=== PATIENT | female | born 1990 | race Caucasian/White ===

== ENCOUNTER 2016-08-09 08:30 | Inpatient (IN) | payer MEDICAID ==
[2016-08-12] MEDS ORDERED: cefOXitin 2 GM Vial ONE (07:03)
[2016-08-12] MEDS: Scopolamine 1.5 MG Transdermal Patch TRDERM PRN (11:09)
[2016-08-12] MEDS ORDERED: Celecoxib 200 MG Cap PO ONE (11:30)
[2016-08-12] MEDS ORDERED: Dextrose 5%-Lactated Ringers 1,000 ML IV SCH (11:30)
[2016-08-12] MEDS ORDERED: Gabapentin 300 MG Cap PO ONE (11:30)
[2016-08-12] MEDS ORDERED: Acetaminophen 500 MG Tab PO ONE (11:30)
[2016-08-12] MEDS ORDERED: Albuterol/Ipratropium 3.0-0.5 MG/3 ML Neb Soln NEB ONE (12:00)
[2016-08-12] MEDS ORDERED: fentaNYL 250 MCG/5 ML SDV ONE (12:21)
[2016-08-12] MEDS ORDERED: Ondansetron 4 MG/2 ML SDV ONE (12:21)
[2016-08-12] MEDS ORDERED: Neostigmine Methylsulfate 1 MG/ML 5 ML Syringe ONE (12:21)
[2016-08-12] MEDS ORDERED: Succinylcholine/Normal Saline 200 MG/10 ML Syringe ONE (12:21)
[2016-08-12] MEDS ORDERED: Dexamethasone 4 MG/ML SDV ONE (12:21)
[2016-08-12] MEDS ORDERED: Lactated Ringers 1,000 ML ONE (12:21)
[2016-08-12] MEDS ORDERED: Propofol 200 MG/20 ML SDV ONE (12:21)
[2016-08-12] MEDS ORDERED: Midazolam 1 MG/ML 2 ML SDV ONE (12:21)
[2016-08-12] MEDS ORDERED: Rocuronium 50 MG/5 ML Vial ONE ×2 (12:21→13:36)
[2016-08-12] MEDS ORDERED: cefOXitin 2 GM in Sodium Chloride 0.9% 50 ML IV ONE (12:30)
[2016-08-12] MEDS ORDERED: Ketamine 500 MG/5 ML MDV IV SCH (13:00)
[2016-08-12] MEDS ORDERED: Ropivacaine 60 ML, Dexamethasone 8 MG, EPINEPHrine 0.4 MG, Sodium Chloride 0.9% 17.6 ML NERVRT SCH ×4 (13:00)
[2016-08-12] MEDS ORDERED: Lidocaine 2% 100 MG/5 ML Syringe IVPUSH ONE (13:00)
[2016-08-12] MEDS ORDERED: HYDROmorphone 1 MG/ML Syringe IVPUSH ONE (15:30)
[2016-08-12] MEDS ORDERED: Labetalol 20 MG/4 ML Syringe IVPUSH PRN (16:26)
[2016-08-12] MEDS ORDERED: Albuterol/Ipratropium 3.0-0.5 MG/3 ML Neb Soln INH PRN (16:26)
[2016-08-12] MEDS ORDERED: SCOPOLAMINE PATCH ASK TOP SCH (16:26)
[2016-08-12] MEDS ORDERED: diphenhydrAMINE 50 MG/ML SDV IVPUSH PRN (16:26)
[2016-08-12] MEDS: Lidocaine 0.4%/D5W 2 GM/500 ML BAG IV SCH (16:35)
[2016-08-12] MEDS: hydrOXYzine HCl 50 MG/ML SDV IM PRN (16:43)
[2016-08-12] MEDS: Ondansetron 4 MG/2 ML SDV IVPUSH PRN (16:50)
[2016-08-12] MEDS ORDERED: MVI, Adult with Vitamin K 10 ML, Thiamine 200 MG, Chromium/Copper/Mang/Selen/Zn 1 ML in... IV SCH ×4 (17:00)
[2016-08-12] MEDS: Pantoprazole 40 MG Vial IVPUSH SCH (17:23)
[2016-08-12] MEDS: Heparin Sodium 5,000 Units/ML Vial SUBCUT SCH (17:31)
[2016-08-12] MEDS ORDERED: Acetaminophen Soln 650 MG/20.3 ML UD Cup ONE (17:40)
[2016-08-12] MEDS: Acetaminophen 325 MG Tab PO SCH ×2 (17:43→22:02)
[2016-08-12] MEDS: cefOXitin 2 GM in Sodium Chloride 0.9% 50 ML IV SCH (17:46)
[2016-08-12] MEDS: HYDROmorphone 1 MG/ML Syringe IVPUSH PRN (19:36)
[2016-08-12] MEDS: Gabapentin 300 MG Cap PO SCH (20:39)
[2016-08-12] MEDS: Albuterol/Ipratropium 3.0-0.5 MG/3 ML Neb Soln INH SCH (20:39)
[2016-08-13] MEDS: cefOXitin 2 GM in Sodium Chloride 0.9% 50 ML IV SCH ×2 (00:03→05:00)
[2016-08-13] MEDS: Dextrose 5%-Lactated Ringers 1,000 ML IV SCH ×2 (00:07→07:26)
[2016-08-13] MEDS ORDERED: Iohexol 647 MG/ML 50 ML SDV IVPUSH PRN (02:21)
[2016-08-13] MEDS: Ondansetron 4 MG/2 ML SDV IVPUSH PRN ×2 (03:09→22:01)
[2016-08-13] MEDS: HYDROmorphone 1 MG/ML Syringe IVPUSH PRN ×2 (03:09→22:02)
[2016-08-13] MEDS: Heparin Sodium 5,000 Units/ML Vial SUBCUT SCH ×3 (03:48→17:07)
[2016-08-13] MEDS: Lidocaine 0.4%/D5W 2 GM/500 ML BAG IV SCH (04:59)
[2016-08-13] MEDS: Acetaminophen 325 MG Tab PO SCH (05:00)
[2016-08-13] MEDS: Albuterol/Ipratropium 3.0-0.5 MG/3 ML Neb Soln INH SCH ×4 (07:10→22:05)
[2016-08-13] MEDS ORDERED: LORazepam 1 MG Tab PO PRN (07:55)
[2016-08-13] MEDS: Celecoxib 200 MG Cap PO SCH (08:00)
[2016-08-13] MEDS: Gabapentin 300 MG Cap PO SCH ×3 (08:00→22:03)
[2016-08-13] MEDS: SCOPOLAMINE PATCH CHECK TOP SCH (08:01)
[2016-08-13] MEDS ORDERED: Non-Formulary Medication 1 Each (Levothyroxine Sodium [Synthroid] 125 MCG) PO SCH (09:00)
[2016-08-13] MEDS ORDERED: Non-Formulary Medication 1 Each (Sertraline [Zoloft] 100 MG) PO SCH (09:00)
--- NOTE | 2016-08-13 09:03 | CR ---
UGI wo KUB HISTORY: evaluate post rny FINDINGS: Limited upper GI series was obtained without fluoroscopy. Water-soluble contrast was admin istered orally. Immediate along with 15 minute delayed images were obtained. Small gastric pouch is demonstrated. Contrast passes readily through the gastrojejunostomy into loops of jejunum. The Sarath limb is dilated which could represent partial obstruction of the distal anastomosis. Postoperative i leus could also be considered. There is no contrast extravasation. Surgical drain is noted left uppe r quadrant. Lung bases are clear. IMPRESSION: Rule out is mildly dilated suggesting possible obstruction of the distal anastomosis bernie jc postoperative ileus. No other postoperative complication is identified status post Sarath-en-Y gas tric bypass.
[2016-08-13] MEDS: Levothyroxine 100 MCG, Levothyroxine 25 MCG PO SCH ×2 (09:06)
[2016-08-13] MEDS: Topiramate 100 MG Tab PO SCH ×2 (09:07→22:03)
[2016-08-13] MEDS: Sertraline 50 MG Tab PO SCH (09:07)
[2016-08-13] MEDS: Acetaminophen Soln 650 MG/20.3 ML UD Cup PO SCH ×3 (11:14→22:04)
[2016-08-13] MEDS ORDERED: Dextrose 5%-Lactated Ringers 1,000 ML IV SCH (12:00)
--- NOTE | 2016-08-13 13:13 | OR ---
DATE OF PROCEDURE: 08/12/2016 PREOPERATIVE DIAGNOSIS: Morbid obesity. POSTOPERATIVE DIAGNOSES: 1. Morbid obesity. 2. Marked hepatomegaly. 3. Paraesophageal diaphragmatic hernia. OPERATIVE PROCEDURE: 1. Laparoscopic Suni-en-Y gastric bypass with long limb gastroenterostomy (43053). 2. Vincent-Cut needle liver biopsy (37172). 3. Repair of paraesophageal diaphragmatic hernia (35291). ANESTHESIA: General. CLERICAL ASSIGNER: Consuelo Mckinney PA-C, and REINALDO Snider student. INDICATIONS FOR PROCEDURE: This is a 25-year-old female presenting with longstanding morbid obesity and increasingly significant comorbidities. After preoperative evaluation and discussion, she wished to proceed with a gastric bypass procedure. Potential risks including bleeding, infection, leaks from various GI tract closures, problems with bowel obstruction over time as well as possibility of cardiopulmonary, septic, or hemorrhagic complications leading to were discussed, and the patient wishes to proceed. DETAILS OF PROCEDURE: The patient was taken to the operating room and after general endotracheal anesthesia was induced, she was placed in a lithotomy position. Bilateral transverse abdominis plane block was then placed in the subcostal location under continuous ultrasound guidance. The abdomen was then prepped and draped. At 15 cm inferior and 5 cm left of xiphoid process, a transverse incision was made and the peritoneal cavity entered under direct vision with an Optiview trocar, inflated to 15 mmHg pressure with CO2. The laparoscope was reinserted. No underlying trocar insertion site injuries were seen. Following this, 5 additional trocars were placed across the upper and mid abdomen and general exploration was undertaken. The patient was noted to have marked hepatomegaly with liver volume being roughly 3 times normal and the liver grossly fatty infiltrated. Vincent-Cut needle biopsies were obtained from the left lobe of the liver. Minimal bleeding from the biopsy sites was controlled with electrocautery. The omentum was then divided in the midline up to the level of the transverse colon. This allowed identification of the small bowel to the ligament of Treitz. Small bowel was traced out 200 cm distal to that point, it was divided transversely with a PHYLLIS stapler. Small bowel was then traced out additional 200 cm where the rocl-xe-jubw enteroenterostomy was accomplished with internal firing of the Endo-PHYLLIS 60 mm stapler, common opening was then closed transversely with the same stapler and the angles anastomosed, and mesenteric defect approximated with some 0 Ethibond stitch along with fibrin sealant, divided end of the Suni limb was then from the mesentery for a few centimeters, which has allowed suni limb to be brought up to the area of the esophagogastric junction with minimal tension. The liver was then retracted anteriorly. The patient was noted to have moderate-sized paraesophageal diaphragmatic hernia. Photo documentation was obtained. This was reduced and the peritoneum over the anterior aspect of the hernia was divided and reflected downward. An anterior repair of the diaphragmatic hernia was then accomplished with some 0 Ethibond sutures, reinforced with PTFE pledgets. The gastrointestinal balloon catheter was then inflated to 15 mL and pulled up snugly against the EG junction. Gastric wall over the apex balloon was then marked with electrocautery, balloon catheter deflated and pulled up from the esophagus. The lesser omental tissue adjacent to gastric cardia was incised and the pouch was initiated with a transverse firing of the PHYLLIS stapler at the level of the cauterized zoe. The pouch was then completed with 2 additional firings of PHYLLIS stapler up to and through the angle of His. The anvil of a 21 mm EEA stapler was then attached to Forrest sump type tube. The latter was brought down through the mouth and taken out through a small opening in the gastric pouch, thus allowing the anvil likewise to be pulled down to within the gastric pouch. The Suni limb was then opened and the main body of the EEA stapler passed several centimeters into the Suni limb of the small bowel, brought up the anvil, united with thus creating the gastrojejunostomy. Upon removal of the stapler, double donuts of mucosa were noted within. The small bowel was closed off with a vascular staple line. Gastrojejunostomy was reinforced with some 3-0 Vicryl seromuscular stitch along with fibrin sealant. A leak test was accomplished with injection of 120 mL of air in the gastric pouch while submerged with a cefoxitin-containing saline solution, no leaks were identified. One Al-Juan drain was then placed adjacent to gastrojejunostomy, taken out through the left subcostal trocar site, and with no further problems noted, trocars were removed, peritoneal cavity was deflated. Incisions were closed with some 4-0 Vicryl skin stitch and drain fixed with 4-0 Vicryl stitch as well. The patient was taken to the recovery room in satisfactory condition. Physician psychologist research assistant, Consuelo Mckinney, played an essential role in assisting in this case, helping to position the patient, retract structures as needed, as well as suturing and cutting sutures as indicated. Her presence improved the patient's safety and decreased operative time. Reyes Munson MD /[id number]
[2016-08-13] MEDS ORDERED: MVI, Adult with Vitamin K 10 ML, Thiamine 200 MG, Chromium/Copper/Mang/Selen/Zn 1 ML in... IV SCH ×4 (16:00)
[2016-08-13] MEDS: Pantoprazole 40 MG Vial IVPUSH SCH (17:07)
--- NOTE | 2016-08-13 21:07 | PN ---
DATE OF SERVICE: 08/13/2016 SUBJECTIVE: Regina is postop day 1. She has been up ambulating. States her pain is controlled. Tolerating a step one diet well. Her upper GI this morning was normal. Regina is on the energy protocol. She did receive Dilaudid IV twice last night. REVIEW OF SYSTEMS: Remainder of review of systems negative for any pertinent positives and negatives. OBJECTIVE: GENERAL: Regina Garcia is a 25-year-old female. She is alert and orientated. VITAL SIGNS: TPR 98.7, 66, 18. Blood pressure 151/81. HEENT: Negative. NECK: Supple. HEART: Regular rate and rhythm. LUNGS: Clear. ABDOMEN: Dressings dry and intact. OSMAN drain is draining a light pink serosanguineous drainage 40 mL in the past 24 hours. EXTREMITIES: SCDs are on and there is no peripheral edema. ASSESSMENT: Laparoscopic Sarath-en-Y gastric bypass surgery, liver biopsy, and repair of diaphragmatic hernia for morbid obesity, hepatomegaly, and diaphragmatic hernia. PLAN: Decrease IV to 100 mL per hour, discontinue her dressing off, may shower. Discontinue continuous pulse ox and telemetry after lidocaine drip is in. Home medications were started. Levothyroxine 125 mcg p.o. before breakfast, Zoloft 100 mg p.o. daily, Topamax 100 mg p.o. b.i.d., and Ativan 1 mg q.6 hours p.r.n. anxiety. Good pulmonary toilet encouraged. We will evaluate p.r.n. or in a.m. Consuelo Mckinney PA-C /[id number]
[2016-08-14] MEDS: Heparin Sodium 5,000 Units/ML Vial SUBCUT SCH ×3 (02:38→17:21)
[2016-08-14] MEDS: Acetaminophen Soln 650 MG/20.3 ML UD Cup PO SCH ×4 (04:33→23:03)
[2016-08-14] MEDS: Albuterol/Ipratropium 3.0-0.5 MG/3 ML Neb Soln INH SCH ×4 (07:29→20:26)
[2016-08-14] MEDS ORDERED: Magnesium Hydroxide 400 MG/5 ML Susp 30 ML Cup PO ONE (08:00)
[2016-08-14] MEDS: Metoclopramide 10 MG/2 ML SDV IVPUSH PRN ×2 (08:25→20:23)
[2016-08-14] MEDS: HYDROmorphone 1 MG/ML Syringe IVPUSH PRN (08:25)
[2016-08-14] MEDS: Scopolamine 1.5 MG Transdermal Patch TRDERM PRN (08:32)
[2016-08-14] MEDS ORDERED: Cyanocobalamin (Vitamin B12) 1,000 MCG/ML SDV IM ONE (09:00)
[2016-08-14] MEDS: Sertraline 50 MG Tab PO SCH (10:06)
[2016-08-14] MEDS: Levothyroxine 100 MCG, Levothyroxine 25 MCG PO SCH ×2 (10:06)
[2016-08-14] MEDS: Gabapentin 300 MG Cap PO SCH ×3 (10:07→20:45)
[2016-08-14] MEDS: Celecoxib 200 MG Cap PO SCH (10:07)
[2016-08-14] MEDS: SCOPOLAMINE PATCH CHECK TOP SCH (10:07)
[2016-08-14] MEDS: Topiramate 100 MG Tab PO SCH ×2 (10:07→20:45)
[2016-08-14] MEDS: Pantoprazole 40 MG Tab.CR PO SCH (12:07)
[2016-08-15] MEDS: hydrOXYzine HCl 50 MG/ML SDV IM PRN (01:30)
[2016-08-15] MEDS: Heparin Sodium 5,000 Units/ML Vial SUBCUT SCH (01:30)
[2016-08-15] MEDS: HYDROmorphone 1 MG/ML Syringe IVPUSH PRN (01:59)
[2016-08-15] MEDS: Ondansetron 4 MG/2 ML SDV IVPUSH PRN (02:05)
[2016-08-15] MEDS: Acetaminophen Soln 650 MG/20.3 ML UD Cup PO SCH ×2 (05:03→10:38)
[2016-08-15] MEDS ORDERED: Ondansetron 4 MG Tab.DIS PO PRN (07:18)
[2016-08-15 07:26] VITALS: BP 150/77
[2016-08-15] MEDS: Levothyroxine 100 MCG, Levothyroxine 25 MCG PO SCH ×2 (07:47)
[2016-08-15] MEDS: Pantoprazole 40 MG Tab.CR PO SCH (07:47)
[2016-08-15] MEDS: Albuterol/Ipratropium 3.0-0.5 MG/3 ML Neb Soln INH SCH (07:50)
[2016-08-15] MEDS: Metoclopramide 10 MG/2 ML SDV IVPUSH PRN (08:01)
[2016-08-15] MEDS: Celecoxib 200 MG Cap PO SCH (08:05)
[2016-08-15] MEDS: SCOPOLAMINE PATCH CHECK TOP SCH (08:05)
[2016-08-15] MEDS: Sertraline 50 MG Tab PO SCH (08:05)
[2016-08-15] MEDS: Gabapentin 300 MG Cap PO SCH (08:05)
[2016-08-15] MEDS: Topiramate 100 MG Tab PO SCH (08:05)
--- NOTE | 2016-08-16 07:29 | DISCH ---
ADMISSION DIAGNOSES: 1. Morbid obesity. 2. Borderline personality major depression disorder. 3. Cyclothymic disorder. 4. Posttraumatic stress disorder. 5. 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 6. Hypothyroidism. 7. Major depression disorder. 8. Joint pain. 9. Heartburn. DISCHARGE DIAGNOSES: 1. SP Sarath-en-Y gastric bypass surgery. 2. Vincent-Cut needle liver biopsy. 3. Repair of paraesophageal diaphragmatic hernia for morbid obesity. 4. Hepatomegaly. 5. Paraesophageal diaphragmatic hernia. DATE OF SURGERY: 08/12/2016. HISTORY: Regina Garcia is a 25-year-old female with longstanding history of morbid obesity and increasingly comorbidities. After preoperative evaluation and discussion of possible risks and possible complications, she wished to proceed with surgical procedure. HOSPITAL COURSE: Regina had her surgery on 08/12/2016 per ENERGY protocol. She was given a TAP block and lidocaine x24 hours. She tolerated that well. She had no operative complications and was up walking on operative day, tolerated a step-1 gastric bypass diet. On postoperative day 2, she had an upper GI and this was normal. She was started on a step- 2 gastric bypass diet without cereal. She continued to increase liquids and she had no complications on step-2 diet. She did receive dietary instruction on postoperative day #2. She was given milk of Mag and was having bowel movements. On postoperative day #3, she was able to be discharged to home. Her activity was good. Oral intake adequate. Pain was well managed and she had adequate dietary and postweight loss surgery instructions and teaching. PHYSICAL EXAMINATION: GENERAL: Regina Garcia is a 25-year-old female. VITAL SIGNS: Height is 5 feet 9 inches. Weight is 406 pounds. BMI is 61. HEENT: Negative. NECK: Supple. HEART: Regular rate and rhythm. LUNGS: Clear. ABDOMEN: Sutures intact. Abdomen is soft and nontender. OSMAN drain is dry without drainage, abdominal binder is on. EXTREMITIES: Without peripheral edema. DISPOSITION: Discharged to home. CONDITION: Stable and improving. FOLLOWUP APPOINTMENT: Consuelo Mckinney PA-C on 08/25/2016 at 11:00. HOME MEDICATIONS: 1. Tylenol 650 mg/20.3 mL q.6 hours 100 mL were given with 1 refill. She is to take as scheduled every 6 hours for 2 weeks. 2. Celebrex 200 mg p.o. daily #14. 3. Vitamin B12 sublingual 1000 mcg daily #100 and 4 refills. 4. Zofran ODT 4 mg oral q.4 hours p.r.n. for nausea #30 and 3 refills. 5. She is to resume her multivitamin complete chewable twice daily. 6. Lorazepam 1 mg p.r.n. anxiety. 7. Levothyroxine 125 mcg oral daily. 8. Zoloft 100 mg oral daily. 9. Topiramate 100 mg oral twice daily. 10.Discontinue the calcium, vitamin D3 and B complex until instructed to restart. DIET: After discharge is to drink 8 to 10 glasses of water a day. Step-2 gastric bypass diet with oat cereal for 2 weeks, 65 g of protein. ACTIVITY: 1. No lifting greater than 10 pounds for 2 weeks. 2. Walk 6-8 times daily inside your home short distances. 3. Shower bathing, may shower. 4. Notify provider if any fever, nausea, or vomiting. 5. Wound incision care, keep site clean and dry. 6. Wear abdominal binder for 2 weeks and then as tolerated. SPECIAL INSTRUCTION: 1. Use incentive spirometer 10 times every hour while awake for 2 weeks. 2. Keep a record of food and liquid intake.
--- NOTE | 2016-08-16 07:32 | PN ---
DATE OF SERVICE: 08/14/2016 SUBJECTIVE: Regina is postoperative day #2. Her oral intake was marginal. Vital signs have been stable. She has been up ambulating. REVIEW OF SYSTEMS: Remainder of review of systems negative for any pertinent positives and negatives. She does have a history of constipation and is concerned by not having a bowel movement, requesting something to help her start having bowel movements, so that she will not have any problems when she goes home. OBJECTIVE: GENERAL: Regina Garcia is a 25-year-old female. She is alert and orientated. VITAL SIGNS: TPR 97.6, 51, 18, blood pressure 119/58. HEENT: Negative. NECK: Supple. HEART: Regular rate and rhythm. LUNGS: Clear. ABDOMEN: Soft and nontender. Sutures in place and abdominal binder is on 4 x 4 over OSMAN drain site initially, but now it is not covered. There has been no drainage. EXTREMITIES: Without peripheral edema. ASSESSMENT: Laparoscopic Sarath-en-Y gastric bypass surgery, liver biopsy, repair of diaphragmatic hernia. DIAGNOSES: Preop of morbid obesity, hepatomegaly, and diaphragmatic hernia, date of surgery 08/12/2016. PLAN: 1. Work on oral intake, milk of magnesia of 30 mL x1, good pulmonary toilet encouraged. 2. We will evaluate p.r.n. or in a.m. 3. We will plan to discharge in a.m. Consuelo Mckinney PA-C /[id number]
== END 2016-08-15 11:10 | disposition home or self-care (01) | DRG 621 ==
LOC: EDSTATUS 08-12 10:00 → JP.SDS 08-12 10:48 → JP.MS 08-12 10:48 → JP.2SS 08-12 15:00
PROVIDERS: ADMIT Surgery; ATTEND Surgery
PROC: 0FB24ZX Excision of Left Lobe Liver, Percutaneous Endoscopic Approach, Diagnostic (ICD-10-PCS; principal; 2016-08-12)
PROC: 0BQS4ZZ (ICD-10-PCS; principal; 2016-08-12)
PROC: 0BQR4ZZ (ICD-10-PCS; principal; 2016-08-12)
PROC: 3E0T3BZ Introduction of Anesthetic Agent into Peripheral Nerves and Plexi, Percutaneous Approach (ICD-10-PCS; principal; 2016-08-12)
PROC: 0D164ZA Bypass Stomach to Jejunum, Percutaneous Endoscopic Approach (ICD-10-PCS; principal; 2016-08-12)
DX: E66.01 Morbid (severe) obesity due to excess calories (principal); K44.9 Diaphragmatic hernia without obstruction or gangrene; Z68.43 Body mass index [BMI] 50.0-59.9, adult; R16.0 Hepatomegaly, not elsewhere classified; E11.9 Type 2 diabetes mellitus without complications; E03.9 Hypothyroidism, unspecified; F34.0 Cyclothymic disorder; Z87.891 Personal history of nicotine dependence; Z88.1 Allergy status to other antibiotic agents; E55.9 Vitamin D deficiency, unspecified; Z20.2 Contact with and (suspected) exposure to infections with a predominantly sexual mode of transmission; F60.3 Borderline personality disorder; F43.10 Post-traumatic stress disorder, unspecified; F32.9 Major depressive disorder, single episode, unspecified
CPT/HCPCS: 36415; 74240; 74240-26; 82962; 86850; 86900; 86901; 88307; 88313; 94640-76; A9270-GY; C9113; J0171; J0694; J1100; J1170; J1644; J2001; J2250; J2405; J2704; J2765; J2795; J3010; J3410; J3411; J3420; J7030; J7040; J7042; J7050; J7120; J7620

== ENCOUNTER 2016-10-04 08:30 | Day surgery (SDC) | payer MEDICAID ==
[2016-10-04] MEDS ORDERED: Cyanocobalamin (Vitamin B12) 1,000 MCG/ML SDV IM ONE (09:00)
[2016-10-04] MEDS ORDERED: Lactated Ringers 1,000 ML IV SCH (09:00)
[2016-10-04] MEDS ORDERED: Glycopyrrolate 0.2 MG/ML 2 ML SDV IVPUSH ONE (09:30)
[2016-10-04] MEDS ORDERED: MVI, Adult with Vitamin K 10 ML, Thiamine 200 MG, Chromium/Copper/Mang/Selen/Zn 1 ML in... IV ONE ×4 (10:00)
[2016-10-04] MEDS ORDERED: Propofol 200 MG/20 ML SDV ONE (10:14)
[2016-10-04] MEDS ORDERED: Midazolam 1 MG/ML 2 ML SDV ONE (10:14)
[2016-10-04] MEDS ORDERED: fentaNYL 100 MCG/2 ML SDV ONE (10:14)
[2016-10-04 12:16] VITALS: BP 97/63
--- NOTE | 2016-10-11 13:06 | OR ---
DATE OF PROCEDURE: 10/04/2016 PREOPERATIVE DIAGNOSES: Probable stricture at gastrojejunostomy. POSTOPERATIVE DIAGNOSES: Mild stricture at gastrojejunostomy. OPERATIVE PROCEDURE: Upper GI endoscopy, dilation gastrojejunostomy (04785). ANESTHESIA: IV sedation. INDICATION FOR PROCEDURE: The patient is status post Sarath-en-Y gastric bypass on 08/12/2016 and presents now with some dysphagia suggestive of stricturing at her gastrojejunostomy. Plan is to proceed with upper GI endoscopy with dilation as indicated. Potential risks including bleeding and perforation were discussed, and the patient wishes to proceed. DETAILS OF THE PROCEDURE: The patient was taken to the operating room and placed in a left lateral decubitus position. IV sedation was administered, after which the upper GI endoscope was passed orally through the length of the esophagus into the gastric pouch and to the level of the gastrojejunostomy. The 1 cm scope was not quite able to be passed through the gastrojejunostomy indicating some degree of stricturing. A Bard gastrointestinal balloon catheter was then centered across the anastomosis and inflated to 45-Mexican size. It was held in position for 1 minute, after which the balloon catheter was deflated and withdrawn. The scope could easily then be passed through the anastomosis, and adequate dilation was confirmed. No complications were evident. The scope was withdrawn, and the procedure was then concluded. The patient was taken to the recovery room in satisfactory condition. Reyes Munson MD /[id number]
== END 2016-10-04 12:30 | disposition home or self-care (01) ==
LOC: JP.SDS 08:30
PROVIDERS: ATTEND Surgery
DX: K94.23 Gastrostomy malfunction (principal); Z98.84 Bariatric surgery status; Z98.0 Intestinal bypass and anastomosis status
CPT/HCPCS: 43245; J2250; J2704; J3010; J3411; J3420; J7120; J3490